=== PATIENT | female | born 1980 ===

== ENCOUNTER 2025-06-20 16:29 | Outpatient (CLI) | payer OTHER, SELFPAY ==
--- NOTE | ~2025-06-20 | XR_ITS ---
AP and lateral views of the right hip Clinical history: Pain Findings: No acute fracture or dislocation is seen. Osseous alignment is anatomic. Right hip joint is intact. Soft tissues are unremarkable. Impression: No significant abnormality is seen. Reviewed, dictated and finalized at location M. Impression: No significant abnormality is seen.
== END 2025-06-20 16:30 | disposition home or self-care (01) ==
LOC: GOSHIMG 16:31
PROVIDERS: PCP Emergency Medicine; Visit Provider Chiropractor
DX: M25.551 Pain in right hip (principal)
CPT/HCPCS: 73502

== ENCOUNTER 2025-08-15 06:52 | Outpatient (CLI) | payer OTHER, SELFPAY ==
--- NOTE | ~2025-08-15 | MR_ITS ---
EXAMINATION: MR hip RT wo con DATE: 08/15/2025 07:37 INDICATION: Right hip pain TECHNIQUE: Magnetic resonance imaging (MRI) of the right hip was performed without intravenous contrast. Sequences included full-field axial PD-weighted FS FSE and T1-weighted FSE, coronal of the pelvis with PD-weighted FS FSE, T2- weighted FSE and T1-weighted FSE, small field of view of the right hip with axial PD-weighted FS FSE, sagittal PD-weighted FS FSE, coronal PD-weighted FS FSE and coronal T2 weighted FSE. Additional radial T1-weighted FGR oriented orthogonal to the acetabular rim were obtained for evaluation of the labrum. COMPARISON: None FINDINGS: Bones/labrum/cartilage: Alignment is normal. No fracture, avascular necrosis or pathologic marrow replacing process. There is a tear of the posterior superior right acetabular labrum. Mild osteoarthritis at the right hip characterized by mild disc narrowing with partial-thickness cartilage loss with smooth chondral surface a long the posterior aspect the joint space along the posterior superior margin of the femoral head where there are also tiny marginal osteophytes. Additional mild osteoarthritis at the contralateral left hip as well as the bilateral sacroiliac and bilateral lower lumbar facet joints. Fluid: Small right hip joint effusion. Physiologic amount fluid in the left hip joint. Trace amount of likely physiologic free fluid in the cul-de-sac. Soft tissues: Normal and symmetric muscle bulk and signal in the pelvis and visualized proximal thighs. The iliopsoas, gluteal and proximal hamstring tendons are normal. 8 mm nabothian cyst at the cervix. Limited evaluation of visceral organs of the pelvis is unremarkable. No pathologically enlarged pelvic/inguinal lymphadenopathy. IMPRESSION: 1. Mild right hip osteoarthritis with tear at the posterior superior labrum and small right hip joint effusion. Reviewed, dictated and finalized at location A.
== END 2025-08-15 06:53 | disposition home or self-care (01) ==
PROVIDERS: PCP Emergency Medicine; Visit Provider Emergency Medicine
DX: M16.11 Unilateral primary osteoarthritis, right hip (principal); S73.191A Other sprain of right hip, initial encounter; X58.XXXA Exposure to other specified factors, initial encounter; M25.451 Effusion, right hip
CPT/HCPCS: 73721